=== PATIENT | female | born 1985 | race Two or more races ===

== ENCOUNTER → 2023-12-22 10:49 | Outpatient (BNVA) | payer SELFPAY | DX: R76.11 Nonspecific reaction to tuberculin skin test without active tuberculosis (principal) ==

== ENCOUNTER → 2023-12-29 09:17 | Outpatient (BNVA) | payer SELFPAY | DX: R76.11 Nonspecific reaction to tuberculin skin test without active tuberculosis (principal) ==

== ENCOUNTER 2024-10-11 10:37 | Emergency (ER) | payer OTHER, SELFPAY ==
--- NOTE | ~2024-10-11 | US_ITS ---
EXAMINATION: US PELVIC DUPLEX COMPLETE HISTORY: Torsion? ovarian rupture COMPARISON: There are no prior studies available for comparison. TECHNIQUE: Transabdominal and endovaginal real-time 2D farmer-scale ultrasound was performed. FINDINGS: Uterus: The uterus is surgically absent. Right ovary: The right ovary surgically absent. Left ovary: The left ovary measures 2.3 x 1.4 x 1.7 cm. The left ovary is normal in size and echotexture. Normal arterial and venous color and spectral Doppler flow is seen. Pelvic fluid: none. US/US pelvic ovarian doppler IMPRESSION: Status post hysterectomy and right nephrectomy. The left ovary is normal in appearance and demonstrates normal vascular flow. Electronically signed by: Yung Asher MD 10/11/2024 01:19 PM EDT
--- NOTE | ~2024-10-11 | CT_ITS ---
EXAMINATION: CT ABDOMEN PELVIS WITHOUT IV CONTRAST HISTORY: left lower abdominal pain, bloating COMPARISON: There are no prior studies available for comparison. TECHNIQUE: CT scan of the abdomen and pelvis was performed without contrast using standard departmental protocol. Coronal and sagittal reformatted images were generated and reviewed. Oral contrast material was not administered at the request of the referring physician. This CT exam was performed with one or more of the following dose reduction techniques: automated exposure control, adjustment of the mA and/or kV according to patient size, use of iterative reconstruction technique. DLP: 457 mGy-cm FINDINGS: LOWER CHEST: The visualized lung bases are clear. There is no pleural effusion. CARDIOVASCULATURE: The heart is normal in size. There is no pericardial effusion. LIVER: The liver is normal in size and contour. The liver has an unremarkable unenhanced appearance. GALLBLADDER / BILE DUCTS: The gallbladder is unremarkable. There is no intra or extrahepatic biliary ductal dilatation. SPLEEN: The spleen is normal in size and has an unremarkable unenhanced appearance. PANCREAS: The pancreas has an unremarkable unenhanced appearance. ADRENAL GLANDS: Unremarkable. KIDNEYS/RETROPERITONEUM: No renal calculi are identified. There is no hydronephrosis. LYMPH NODES: No retroperitoneal lymphadenopathy is identified in the abdomen or pelvis. VASCULATURE: The abdominal aorta is normal in caliber. MESENTERY/PERITONEUM: No free fluid. No masses. There is no free intraperitoneal gas. STOMACH: The stomach is collapsed, limiting evaluation. SMALL BOWEL: The small bowel is normal in caliber. COLON: There is a moderate amount of stool throughout the colon. APPENDIX: The appendix is surgically absent. URINARY BLADDER/PELVIC ORGANS: The urinary bladder is collapsed, limiting evaluation. The patient is status post hysterectomy. BONES / SOFT TISSUES: No suspicious bony or soft tissue abnormalities. CT/CT abdomen pelvis wo IV con IMPRESSION: Moderate amount of stool throughout the colon. Electronically signed by: Yung Asher MD 10/11/2024 01:58 PM EDT
--- NOTE | ~2024-10-11 | US_ITS ---
CLINICAL HISTORY: N17.9 - Acute kidney failure, unspecified US Renal with Doppler Comparison: None Findings: Right kidney normal size and echotexture, 8.4 cm length. No hydronephrosis. Normal color Doppler. Resistive index 0.76. Left kidney normal size and echotexture, 8.5 cm length. No hydronephrosis. Normal color Doppler. Resistive index 0.83. IMPRESSION: 1. Findings suggesting left lower pole renal artery stenosis. Appropriate follow-up recommended. This document has been electronically signed by: Karl Escalante MD on 10/12/2024 10:28:34
[2024-10-11 10:45] VITALS: BP 137/101; PULSE 90; RESP 20; TEMP 36.4; O2SAT 100; BMI 23.6
[2024-10-11 11:35] LABS: MANUAL DIFF FLAG NO
[2024-10-11 11:36] LABS: Basophils Percent Auto 0.5 % (0-2); Eosinophils Absolute Auto 0.1 X10*3/uL (0.0-0.4); Eosinophils Percent Auto 1.2 % (0-4); Hematocrit 36.7 % (37.0-47.0); Hemoglobin 12.5 g/dl (12.0-16.0); Imm Gran Abs Auto 0.02 X10*3/uL (0.00-0.03); Imm Gran Pct Auto 0.3 % (0.0-0.4); Lymphocytes Absolute Auto 2.3 X10*3/uL (1.2-4.9); Mean Corpuscular HGB Conc 34.1 g/dl (31.0-35.0); Mean Corpuscular Hemoglobin 31.6 pg (27.0-33.0); Mean Corpuscular Volume 92.9 fL (80.0-98.0); Monocytes Absolute Auto 0.5 X10*3/uL (0.1-1.2); Monocytes Percent Auto 7.7 % (2-11); Neutrophils Absolute Auto 3.1 x10*3/uL (2.0-8.3); Neutrophils Percent Auto 51.3 % (45-73); Platelet Count 358 X10*3/uL (160-400); Red Blood Count 3.95 X10*6/uL (4.20-5.50); Red Cell Distribution Width 13.6 % (11.0-16.0)
[2024-10-11 11:46] LABS: Appearance Urine Clear; Color Urine Dark Yellow; Glucose Urine UA Negative (Negative); Leukocyte Esterase Urine Trace (Negative); Nitrite Urine Negative (Negative); PH 7.5 (5.0-9.0); UMIC TRIGGER UACC YES; Urine Blood Negative (Negative); Urine Ketones Trace mg/dL (Negative); Urine Protein Negative (Neg-Trace)
[2024-10-11 11:50] LABS: Bacteria Urine Trace (None Seen); Hyaline Casts Urine 0-2 /LPF (0-2); RBC Urine 0-2 /HPF (0-2); WBC Urine 0-5 /HPF (0-5)
[2024-10-11 11:52] LABS: Alanine Aminotransferase 22 U/L (0-31); Albumin Level 4.4 g/dL (3.5-5.0); Alkaline Phosphatase 54 U/L (39-117); Anion Gap 9 (12-20); Aspartate Amino Transferase 19 U/L (5-31); Bilirubin Direct < 0.2 mg/dL (0.0-0.5); Bilirubin Total 0.1 mg/dL (0.0-1.0); Blood Urea Nitrogen 9 mg/dL (9-16); Calcium 9.2 mg/dL (8.4-10.2); Carbon Dioxide 26 mmol/L (22-29); Chloride 109 mmol/L (96-108); Creatinine Clr Calc Pharmacy 129.8; Estimated Glomerular Filt Rate > 60; Glucose Random 84 mg/dL (60-115); Lipase 18 U/L (8-78); Potassium 4.3 mmol/L (3.3-5.1); Sodium 140 mmol/L (135-145); Total Protein 7.2 g/dL (6.5-8.0)
[2024-10-11] MEDS: Ibuprofen 800 MG TABLET PO (12:03)
--- NOTE | 2024-10-11 12:08 | ED_ITS ---
HPI - General Adult General Chief complaint: Abdominal Pain Stated complaint: Lightheaded Dizzy L Lower Abd Pain Time Seen by Provider: 10/11/24 12:39 Related Data Previous Rx's ?Medication ?Instructions ?Recorded hydromorphone 2 mg tablet 2 mg PO Q4-6H PRN pain #7 tabs 10/11/24 (Dilaudid) hydromorphone 2 mg tablet 2 mg PO Q6H PRN pain #7 tabs 10/11/24 (Dilaudid) ondansetron 4 mg disintegrating 4 mg PO TID PRN nausea and 10/11/24 tablet vomiting 5 days #10 tabs ondansetron 4 mg disintegrating 4 mg PO TID PRN nausea and 10/11/24 tablet vomiting 5 days #10 tabs Allergies Allergy/AdvReac Type Severity Reaction Status Date / Time acetaminophen [From Vicodin] Allergy Hives Verified 10/11/24 10:48 hydrocodone [From Vicodin] Allergy Hives Verified 10/11/24 10:48 tramadol Allergy Seizure Verified 10/11/24 10:48 [facility] Social History Social History Alcohol intake: current Alcohol type: wine Smoked in Last 30 Days: No Use of substances other than those prescribed or required for medical reasons: Yes Substance Use Type: Marijuana Substance Use Frequency: Occasionally Advance Directives: No Advance Directives Information Provided: Yes Do you have a plan to hurt others: No Plan Patient : No Physical Exam ED Vital Signs: Vital Signs - 24 hr 10/11/24 10:45 10/11/24 13:29 Temperature 97.5 F 97.5 F Pulse Rate 90 90 Respiratory Rate 20 20 Blood Pressure 137/101 H 137/101 H Pulse Oximetry 100 100 Oxygen Delivery Method Room Air Room Air BMI result Body Mass Index 23.6 Course Course Course Narrative: RME: 39-year-old female history of endometriosis with partial hysterectomy presents to ED for left lower abdominal pelvic abdominal pain with nausea. Patient has normal bowel movements. Patient denies any urinary symptoms. Patient has not had an endometrial hours flare-up in 1 year. Labs were normal. Due to patient's still having left ovary and having left lower over abdominal tenderness was sent for ultrasound neck she does no torsion also sent for CAT scan. Medications Administered Discontinued Medications Generic Name Dose Route Start Last Admin Trade Name Nga PRN Reason Stop Dose Admin Hydromorphone HCl 2 mg 10/11/24 14:33 10/11/24 14:38 Hydromorphone Hcl 2 Mg Tablet PO 10/11/24 14:34 2 mg ONCE ONE Administration Ibuprofen 800 mg 10/11/24 11:59 10/11/24 12:03 Ibuprofen 800 Mg Tablet PO 10/11/24 12:00 800 mg ONCE ONE Administration Ondansetron HCl 4 mg 10/11/24 14:33 10/11/24 14:38 Ondansetron Odt 4 Mg Tab.Rapdis TRANSLINGU 10/11/24 14:34 4 mg ONCE ONE Administration Medical Decision Making Lab Data 10/11/24 11:13 10/11/24 11:13 Labs: Lab Results 10/11/24 10/11/24 Range/Units 11:12 11:13 WBC 6.0 (4.8-10.8) X10*3/uL RBC 3.95 L (4.20-5.50) X10*6/uL Hgb 12.5 (12.0-16.0) g/dl Hct 36.7 L (37.0-47.0) % MCV 92.9 (80.0-98.0) fL MCH 31.6 (27.0-33.0) pg MCHC 34.1 (31.0-35.0) g/dl RDW 13.6 (11.0-16.0) % Plt Count 358 (160-400) X10*3/uL MPV 9.0 L (9.4-12.3) fL Immature Gran % (Auto) 0.3 (0.0-0.4) % Neut % (Auto) 51.3 (45-73) % Lymph % (Auto) 39.0 (20-40) % [place] % (Auto) 7.7 (2-11) % Eos % (Auto) 1.2 (0-4) % Baso % (Auto) 0.5 (0-2) % Lymph # (Auto) 2.3 (1.2-4.9) X10*3/uL [place] # (Auto) 0.5 (0.1-1.2) X10*3/uL Eos # (Auto) 0.1 (0.0-0.4) X10*3/uL Baso # (Auto) 0.0 (0.0-0.2) X10*3/uL Abs Immat Gran (auto) 0.02 (0.00-0.03) X10*3/uL Absolute Neuts (auto) 3.1 (2.0-8.3) x10*3/uL Absolute Nucleated RBC 0.000 (0.0-0.012) X10*3/uL Nucleated RBC % (auto) 0.0 (0.0-0.2) /100WBC Sodium 140 (135-145) mmol/L Potassium 4.3 (3.3-5.1) mmol/L Chloride 109 H (96-108) mmol/L Carbon Dioxide 26 (22-29) mmol/L Anion Gap 9 L (12-20) BUN 9 (9-16) mg/dL Creatinine 0.56 (0.5-1.4) mg/dL Estim Creat Clear Calc 129.8 Estimated GFR > 60 Random Glucose 84 (60-115) mg/dL Calcium 9.2 (8.4-10.2) mg/dL Total Bilirubin 0.1 (0.0-1.0) mg/dL Direct Bilirubin < 0.2 (0.0-0.5) mg/dL AST 19 (5-31) U/L ALT 22 (0-31) U/L Alkaline Phosphatase 54 (39-117) U/L Total Protein 7.2 (6.5-8.0) g/dL Albumin 4.4 (3.5-5.0) g/dL Lipase 18 (8-78) U/L Beta HCG, Quant < 2 mIU/mL Urine Color Dark Yellow Urine Appearance Clear Urine pH 7.5 (5.0-9.0) Ur Specific [place] 1.020 (1.005-1.025) Urine Protein Negative (Neg-Trace) mg/dL Urine Glucose (UA) Negative (Negative) mg/dL Urine Ketones Trace (Negative) mg/dL Urine Blood Negative (Negative) Urine Nitrite Negative (Negative) Ur Leukocyte Esterase Trace H (Negative) Urine RBC 0-2 (0-2) /HPF Urine WBC 0-5 (0-5) /HPF Ur Squamous Epith Cells 3-5 (0-2) /HPF Urine Bacteria Trace (None Seen) Hyaline Casts 0-2 (0-2) /LPF Urine Test NEGATIVE (NEGATIVE) Discharge Plan Discharge Clinical Impression: Abdominal pain Patient Disposition: Home, Self-Care Instructions: Abdominal Pain (ED) Prescriptions: New hydromorphone [Dilaudid] 2 mg tablet 2 mg PO Q6H PRN (Reason: pain) Qty: 7 0RF Rx Instructions: Partial Fill upon patient request. ondansetron 4 mg tablet,disintegrating 4 mg PO TID PRN (Reason: nausea and vomiting) 5 Days Qty: 10 0RF ondansetron 4 mg tablet,disintegrating 4 mg PO TID PRN (Reason: nausea and vomiting) 5 Days Qty: 10 0RF hydromorphone [Dilaudid] 2 mg tablet 2 mg PO Q4-6H PRN (Reason: pain) Qty: 7 0RF Rx Instructions: Partial Fill upon patient request. Referrals: Physician,Derrick J [Primary Care Provider] - 10/15/24 Print Language: Divehi
[2024-10-11 12:20] LABS: UPreg QC Valid YES; Urine Pregnancy NEGATIVE (NEGATIVE)
[2024-10-11 12:32] LABS: HCG Quantitative < 2 mIU/mL
[2024-10-11 13:29] VITALS: BP 137/101; PULSE 90; RESP 20; TEMP 36.4; O2SAT 100
--- NOTE | 2024-10-11 13:32 | PC.NURSE ---
Patiwnt A&O x 4. Patient prsent to Ed c/o of lower left abdominal pain rated 10/10 radiates toward the back. Pain started yesterday but was manageable. Last Bm yesterday, Denies Nausea at this time, no vomiting, no diarrhea. Denies injury. Abdomen distended but soft, + bowel sounds. Patient has Hx of hysterectomy performed two years ago and endomitriosis, Patient states I have flair ups sometimes, but the pain is excruciating . Denies SOB. VSS and up to date. Plan of care on going
--- NOTE | 2024-10-11 13:55 | ED.ABDPAIN ---
HPI - Abdominal Pain General Chief Complaint: Abdominal Pain Stated Complaint: Lightheaded Dizzy L Lower Abd Pain Time Seen by Provider: 10/11/24 12:39 History of Present Illness HPI narrative: Patient is a 39-year-old female with a history of endometriosis status post hysterectomy complaining of pain to the left lower quadrant area radiating to the left flank area. There is no fever no chills. Pain wraps around. Not associated with position feels bloated. Patient from home no cough no congestion or upper respiratory symptoms no diaphoresis Related Data Previous Rx's ?Medication ?Instructions ?Recorded hydromorphone 2 mg tablet 2 mg PO Q4-6H PRN pain #7 tabs 10/11/24 (Dilaudid) hydromorphone 2 mg tablet 2 mg PO Q6H PRN pain #7 tabs 10/11/24 (Dilaudid) ondansetron 4 mg disintegrating 4 mg PO TID PRN nausea and 10/11/24 tablet vomiting 5 days #10 tabs ondansetron 4 mg disintegrating 4 mg PO TID PRN nausea and 10/11/24 tablet vomiting 5 days #10 tabs Allergies Allergy/AdvReac Type Severity Reaction Status Date / Time acetaminophen [From Vicodin] Allergy Hives Verified 10/11/24 10:48 hydrocodone [From Vicodin] Allergy Hives Verified 10/11/24 10:48 tramadol Allergy Seizure Verified 10/11/24 10:48 Review of Systems Review of Systems Positive abdominal pain Yes all other systems are reviewed and are negative PMFSH Past Medical History Attestation statement: The following information was validated with the patient. Social History Social History Alcohol intake: current Alcohol type: wine Smoked in Last 30 Days: No Use of substances other than those prescribed or required for medical reasons: Yes Substance Use Type: Marijuana Substance Use Frequency: Occasionally Advance Directives: No Advance Directives Information Provided: Yes Do you have a plan to hurt others: No Plan Patient : No Physical Exam ED Vital Signs: Vital Signs - 24 hr 10/11/24 10:45 10/11/24 13:29 Temperature 97.5 F 97.5 F Pulse Rate 90 90 Respiratory Rate 20 20 Blood Pressure 137/101 H 137/101 H Pulse Oximetry 100 100 Oxygen Delivery Method Room Air Room Air BMI result Body Mass Index 23.6 Appearance: Alert. Oriented X3. No acute distress. Eyes: Pupils equal, round and reactive to light. ENT: Pharynx normal. Neck: Normal inspection. Neck supple. No lymph nodes noted. No crepitus CVS: Normal heart rate and rhythm. Pulses normal. Normal S1 and S2 Respiratory: No respiratory distress. Breath sounds normal. No Wheezing. No rales Abdomen: Soft and nontender. No rigidity. No distention. good BS x4 Skin: Skin warm and dry. Normal skin color. Normal skin turgor. Extremities: No lower extremity edema. Neurovascular intact to all extremities. No Lacerations. No Rash Neuro: Oriented X 3. No motor deficit. No sensory deficit. Moving all extermities. No slurred speech Medical Decision Making Medical Decision Making [facility] Narrative: Positive left lower quadrant pain. With a history of endometriosis. Patient's white count is normal hemoglobin of 12.5 which is baseline. Patient's electrolytes showed normal LFTs. Patient's test is negative consistent with partial hysterectomy urine negative for infection no signs of UTI. CT scan of the abdomen pelvis currently pending. Doppler ultrasound of the lower abdomen showed no evidence of torsion. CT scan showed no obstruction abscess perforation does show moderate constipation patient in no distress. White count is normal electrolytes normal repeat abdominal exam is soft originally offered patient has some additional pain medication some fluids patient refused wants to go home and rest. Currently in stable condition. Differential Diagnosis Differential Diagnoses: The differential diagnosis associated with the presentation includes Lab Data [facility] Lab Attestation statement: I reviewed the patient's lab results. 10/11/24 11:13 10/11/24 11:13 Labs: Lab Results 10/11/24 10/11/24 Range/Units 11:12 11:13 WBC 6.0 (4.8-10.8) X10*3/uL RBC 3.95 L (4.20-5.50) X10*6/uL Hgb 12.5 (12.0-16.0) g/dl Hct 36.7 L (37.0-47.0) % MCV 92.9 (80.0-98.0) fL MCH 31.6 (27.0-33.0) pg MCHC 34.1 (31.0-35.0) g/dl RDW 13.6 (11.0-16.0) % Plt Count 358 (160-400) X10*3/uL MPV 9.0 L (9.4-12.3) fL Immature Gran % (Auto) 0.3 (0.0-0.4) % Neut % (Auto) 51.3 (45-73) % Lymph % (Auto) 39.0 (20-40) % [place] % (Auto) 7.7 (2-11) % Eos % (Auto) 1.2 (0-4) % Baso % (Auto) 0.5 (0-2) % Lymph # (Auto) 2.3 (1.2-4.9) X10*3/uL [place] # (Auto) 0.5 (0.1-1.2) X10*3/uL Eos # (Auto) 0.1 (0.0-0.4) X10*3/uL Baso # (Auto) 0.0 (0.0-0.2) X10*3/uL Abs Immat Gran (auto) 0.02 (0.00-0.03) X10*3/uL Absolute Neuts (auto) 3.1 (2.0-8.3) x10*3/uL Absolute Nucleated RBC 0.000 (0.0-0.012) X10*3/uL Nucleated RBC % (auto) 0.0 (0.0-0.2) /100WBC Sodium 140 (135-145) mmol/L Potassium 4.3 (3.3-5.1) mmol/L Chloride 109 H (96-108) mmol/L Carbon Dioxide 26 (22-29) mmol/L Anion Gap 9 L (12-20) BUN 9 (9-16) mg/dL Creatinine 0.56 (0.5-1.4) mg/dL Estim Creat Clear Calc 129.8 Estimated GFR > 60 Random Glucose 84 (60-115) mg/dL Calcium 9.2 (8.4-10.2) mg/dL Total Bilirubin 0.1 (0.0-1.0) mg/dL Direct Bilirubin < 0.2 (0.0-0.5) mg/dL AST 19 (5-31) U/L ALT 22 (0-31) U/L Alkaline Phosphatase 54 (39-117) U/L Total Protein 7.2 (6.5-8.0) g/dL Albumin 4.4 (3.5-5.0) g/dL Lipase 18 (8-78) U/L Beta HCG, Quant < 2 mIU/mL Urine Color Dark Yellow Urine Appearance Clear Urine pH 7.5 (5.0-9.0) Ur Specific [place] 1.020 (1.005-1.025) Urine Protein Negative (Neg-Trace) mg/dL Urine Glucose (UA) Negative (Negative) mg/dL Urine Ketones Trace (Negative) mg/dL Urine Blood Negative (Negative) Urine Nitrite Negative (Negative) Ur Leukocyte Esterase Trace H (Negative) Urine RBC 0-2 (0-2) /HPF Urine WBC 0-5 (0-5) /HPF Ur Squamous Epith Cells 3-5 (0-2) /HPF Urine Bacteria Trace (None Seen) Hyaline Casts 0-2 (0-2) /LPF Urine Test NEGATIVE (NEGATIVE) Radiology Impression Discussion of test interpretation with radiology: I have reviewed the radiologist's reading. (IMPRESSION: Moderate amount of stool throughout the colon.) Radiologist Impression: Left ovary: The left ovary measures 2.3 x 1.4 x 1.7 cm. The left ovary is normal in size and echotexture. Normal arterial and venous color and spectral Doppler flow is seen. Independent Historian Clinical information obtained from an independent historian. History obtained from or confirmed by: Spouse Chronic Conditions Endometriosis Medications Administered Discontinued Medications Generic Name Dose Route Start Last Admin Trade Name Freq PRN Reason Stop Dose Admin Ibuprofen 800 mg 10/11/24 11:59 10/11/24 12:03 Ibuprofen 800 Mg Tablet PO 10/11/24 12:00 800 mg ONCE ONE Administration Discharge Plan Discharge Clinical Impression: Abdominal pain Patient Disposition: Home, Self-Care Instructions: Abdominal Pain (ED) Prescriptions: New hydromorphone [Dilaudid] 2 mg tablet 2 mg PO Q6H PRN (Reason: pain) Qty: 7 0RF Rx Instructions: Partial Fill upon patient request. ondansetron 4 mg tablet,disintegrating 4 mg PO TID PRN (Reason: nausea and vomiting) 5 Days Qty: 10 0RF ondansetron 4 mg tablet,disintegrating 4 mg PO TID PRN (Reason: nausea and vomiting) 5 Days Qty: 10 0RF hydromorphone [Dilaudid] 2 mg tablet 2 mg PO Q4-6H PRN (Reason: pain) Qty: 7 0RF Rx Instructions: Partial Fill upon patient request. Referrals: Physician,Unknown J [Primary Care Provider] - 10/15/24 Print Language: [place]
[2024-10-11] MEDS: HYDROmorphone HCl 2 MG TABLET PO (14:38)
[2024-10-11] MEDS: Ondansetron ODT 4 MG TAB.RAPDIS TRANSLINGU (14:38)
[2024-10-11 14:39] VITALS: BP 128/97; PULSE 80; RESP 14; TEMP 36.6; O2SAT 96
[2024-10-11 14:57] VITALS: BP 128/97; PULSE 80; RESP 14; TEMP 36.6; O2SAT 96
== END 2024-10-11 15:03 | disposition home or self-care (01) ==
PROVIDERS: Physician Assistant; Emergency Provider Emergency Medicine Emergency Medical Services
DX: R10.32 Left lower quadrant pain (principal); R10.2 Pelvic and perineal pain; R11.0 Nausea; F12.90 Cannabis use, unspecified, uncomplicated; Z90.710 Acquired absence of both cervix and uterus
CPT/HCPCS: 36415; 74176; 76830; 76856; 80048; 80076; 81001; 81025; 83690; 84702; 85025; 93975; 99284

== ENCOUNTER → 2024-10-11 12:00 | Outpatient (BNV) | payer OTHER, SELFPAY | PROVIDERS: Emergency Provider Emergency Medicine Emergency Medical Services; Visit Provider Radiology Diagnostic Radiology | DX: N17.9 Acute kidney failure, unspecified (principal) | CPT/HCPCS: 76856 ==

== ENCOUNTER → 2025-02-04 10:17 | Outpatient (BNVA) | payer OTHER, SELFPAY | PROVIDERS: Visit Provider Emergency Medicine | DX: Z13.89 Encounter for screening for other disorder (principal) | CPT/HCPCS: 84450; 84460; 86706; 86803; 87389; 99203 ==

== ENCOUNTER 2025-03-04 15:42 | Emergency (ER) | payer OTHER, SELFPAY ==
[2025-03-04 15:54] VITALS: BP 147/89; PULSE 86; RESP 20; TEMP 36.1; O2SAT 100; BMI 23.3
== END 2025-03-04 21:05 | disposition left against medical advice (07) ==
PROVIDERS: Emergency Provider Emergency Medicine; PCP Internal Medicine
DX: R06.02 Shortness of breath (principal); R50.9 Fever, unspecified; M54.50 Low back pain, unspecified; R10.A2 Flank pain, left side; Z53.21 Procedure and treatment not carried out due to patient leaving prior to being seen by health care provider
CPT/HCPCS: 99281

== ENCOUNTER 2025-03-05 08:02 | Emergency (ER) | payer OTHER, SELFPAY ==
--- NOTE | 2025-03-05 | ECG_ITS ---
Test Reason : cp Blood Pressure : */* mmHG Vent. Rate : 96 BPM Atrial Rate : 96 BPM P-R Int : 160 ms QRS Dur : 72 ms QT Int : 360 ms P-R-T Axes : 46 58 30 degrees QTcB Int : 454 ms Normal sinus rhythm Cannot rule out Inferior infarct , age undetermined Abnormal ECG No previous ECGs available Referred By: Generic ED Physician Electronically Signed By: BETH CHAWLA MD
--- NOTE | ~2025-03-05 | XR_ITS ---
EXAMINATION: XR CHEST CLINICAL INFORMATION: SOB COMPARISON: None available. TECHNIQUE: 2 views of the chest were obtained. FINDINGS: Lungs: No focal lung consolidation. No evidence of pulmonary edema. Pleura: No pleural effusion or pneumothorax. Heart/Mediastinum: Cardiomediastinal silhouette is within normal limits. Bones/Soft Tissues: Chronic appearing anterior wedging deformity of multiple mid thoracic vertebrae. Bilateral nipple jewelry. XR/XR chest 2V IMPRESSION: 1. No acute abnormality. 2. Chronic appearing compression fracture deformity of midthoracic vertebrae. Electronically signed by: Anastasia Stack MD 03/05/2025 08:37 AM EDT
--- NOTE | ~2025-03-05 | CT_ITS ---
EXAMINATION: CT ABDOMEN AND PELVIS WITH CONTRAST CLINICAL INFORMATION: Left flank pain radiating to left lower abdomen. COMPARISON: October 11, 2024 TECHNIQUE: Multidetector volumetric images were obtained from the superior aspect of the liver through the pubic symphysis following administration 85 mL of Omnipaque 350 intravenous contrast. Sagittal and coronal reformatted images were obtained on the technologist's workstation. Oral contrast: No This CT examination was performed using dose optimization techniques as appropriate, variously including the following: *Automated exposure control *Adjustment of mA and/or kV according to patient size (this includes techniques or standardized protocols for targeted exams where dose is matched to indication/reason for exam; i.e. extremities or head) *Use of iterative reconstruction technique DLP: 488 mGy centimeter. FINDINGS: LUNG BASES: Atelectasis. LIVER, GALLBLADDER, AND BILIARY TREE: Liver measures 18 cm. 5 mm hypodensity in the periphery of the posterior right hepatic lobe. 9 mm hypodensities in the dome of the left hepatic lobe. Main portal veins and hepatic veins and intrahepatic portions of the IVC are patent. No focal enhancing mass. Fluid-filled nondistended. No pericholecystic fluid collection or gallbladder wall thickening. No intrahepatic or extrahepatic biliary ductal dilatation. PANCREAS: No focal mass. No main pancreatic ductal dilatation. No peripancreatic fluid collection. SPLEEN: 9 cm. No focal mass. ADRENAL GLANDS: No nodular lesions. KIDNEYS AND URETERS: No hydronephrosis. No gross nephrolithiasis. Normal enhancement of the renal parenchyma. No dilatation of the ureters. BLADDER: Fluid-filled nearly collapsed. GASTROINTESTINAL TRACT: Status post appendectomy. Collapsed appearance of the left hemicolon with the questionable intestinal wall thickening. Fatty intestinal wall, terminal ileum and distal ileal loops. No intestinal obstruction pattern. No pneumatosis intestinalis. No pneumoperitoneum. No ascites. No peripheral enhancing fluid collections.. ABDOMINAL WALL: Small tiny fat-containing umbilical hernia. LYMPH NODES: Nonspecific mildly prominent mesenteric and retroperitoneum. VASCULAR: No aneurysm or dissection, abdominal aorta. No gross calcified plaques. PELVIC VISCERA: Absent likely prior hysterectomy and possibly bilateral oophorectomy. OSSEOUS STRUCTURES: S shaped curvature of the thoracolumbar spine which could be positional. No acute fracture or listhesis. Spondylosis, L5-S1 and to a lesser extent L4-5. Sclerosis and the sacroiliac joints. Bony pelvis and coxofemoral joints are intact with normal alignment. CT/CT abdomen pelvis w IV con IMPRESSION: Posterior mild enterocolitis in the correct clinical settings. Hepatomegaly. Nonspecific cystic lesions, hepatic. Fleischner guidelines were followed. Electronically signed by: Rubin Moya MD 03/05/2025 10:35 AM EDT
[2025-03-05 08:08] VITALS: BP 134/80; PULSE 101; RESP 20; TEMP 37; O2SAT 98; BMI 23.8
[2025-03-05 08:23] LABS: MANUAL DIFF FLAG NO
[2025-03-05 08:25] LABS: Hematocrit 37.3 % (37.0-47.0); Hemoglobin 12.9 g/dl (12.0-16.0); Imm Gran Abs Auto 0.02 X10*3/uL (0.00-0.03); Imm Gran Pct Auto 0.3 % (0.0-0.4); Lymphocytes Absolute Auto 2.0 X10*3/uL (1.2-4.9); Mean Corpuscular HGB Conc 34.6 g/dl (31.0-35.0); Mean Corpuscular Hemoglobin 31.7 pg (27.0-33.0); Mean Corpuscular Volume 91.6 fL (80.0-98.0); NRBC Abs Auto 0.000 X10*3/uL (0.0-0.012); NRBC Pct Auto 0.0 /100WBC (0.0-0.2); Platelet Count 418 X10*3/uL (160-400); Red Blood Count 4.07 X10*6/uL (4.20-5.50); White Blood Count 7.3 X10*3/uL (4.8-10.8)
[2025-03-05 08:38] LABS: Alanine Aminotransferase 20 U/L (0-31); Albumin Level 4.7 g/dL (3.5-5.0); Alkaline Phosphatase 72 U/L (39-117); Anion Gap 11 (12-20); Aspartate Amino Transferase 23 U/L (5-31); Blood Urea Nitrogen 6 mg/dL (9-16); Calcium 9.0 mg/dL (8.4-10.2); Carbon Dioxide 28 mmol/L (22-29); Chloride 100 mmol/L (96-108); Creatinine Clr Calc Pharmacy 118.6; Estimated Glomerular Filt Rate > 60; Lipase 20 U/L (8-78); Magnesium 2.1 mg/dL (1.6-2.6); Potassium 3.3 mmol/L (3.3-5.1); Sodium 136 mmol/L (135-145); Total Protein 7.8 g/dL (6.5-8.0)
--- NOTE | 2025-03-05 09:09 | ED.GENADULT ---
HPI - General Adult General Chief complaint: General Medical Stated complaint: back pain, chest tightness, CP, fatigue Time Seen by Provider: 03/05/25 09:09 History of Present Illness ED Provider: MANISH Lerma HPI narrative: 39-year-old female with medical history of renal artery stenosis, HTN, endometriosis presents to ED due to 1 week of L sided flank pain radiating into the left lower abdomen, SOB, fevers, and headaches. Patient states she has been experiencing L flank pain for approximately 1 month but in the last week, the pain has become more severe and is now radiating into the left lower abdomen. Patient reports increased urinary frequency last night but no pain with urination. Patient reports SOB with subjective fevers over the last 2 weeks. Patient states SOB is worse when walking around or talking and feels as if she has to take a break while taking to catch her breath. Patient states she has also been experiencing headaches over the last several months due to high blood pressure. Patient states she was seen in the department in September of 2024 for abdominal pain and ultrasound revealed renal artery stenosis. Patient reports her PCP has started her on 2 antihypertensive medications due to these findings. Patient states she experiences headaches when her blood pressure is high. Patient states she has a headache today that is in the back of the neck and occipital region. Patient states she has discussed headaches with PCP and has referal for nephrology follow up 03/12. Denies chest pain, nausea, vomiting, visual changes, MD complaint: L flank pain, increased urinary frequency, SOB, headaches Related Data Previous Rx's ?Medication ?Instructions ?Recorded hydromorphone 2 mg tablet 2 mg PO Q4-6H PRN pain #7 tabs 10/11/24 (Dilaudid) hydromorphone 2 mg tablet 2 mg PO Q6H PRN pain #7 tabs 10/11/24 (Dilaudid) hydromorphone 2 mg tablet 2 mg PO Q6H PRN pain #7 tabs 10/11/24 (Dilaudid) ondansetron 4 mg disintegrating 4 mg PO TID PRN nausea and 10/11/24 tablet vomiting 5 days #10 tabs ondansetron 4 mg disintegrating 4 mg PO TID PRN nausea and 10/11/24 tablet vomiting 5 days #10 tabs ondansetron HCl 4 mg tablet 4 mg PO BEDTIME #7 tabs 03/05/25 Allergies Allergy/AdvReac Type Severity Reaction Status Date / Time acetaminophen (From Vicodin) Allergy Hives Verified 03/05/25 08:10 hydrocodone (From Vicodin) Allergy Hives Verified 03/05/25 08:10 tramadol Allergy Seizure Verified 03/05/25 08:10 Review of Systems Review of Systems: CONST: Negative for fever, body aches and chills. HENT: Negative for neck pain/stiffness, congestion, sore throat, swelling. POS headache EYES: Negative for discharge/pain or vision changes. RESP: Negative for cough/hemoptysis. POS SOB CV: Negative chest pain, difficulty breathing, palpitations. ABD: Negative pain, nausea, vomiting. POS L flank pain radiating into LLQ abdomen : Negative increase frequency, dysuria, blood in urine or stool. POS increased urinary frequency MUSC: Negative for muscle aches, edema. SKIN: Negative rash, lesions/sores. NEURO: Negative headache, dizziness, weakness. Yes all other systems are reviewed and are negative [facility] Social History Social History Alcohol intake: never Smoked in Last 30 Days: No Use of substances other than those prescribed or required for medical reasons: Yes Substance Use Type: Marijuana Advance Directives: No Advance Directives Information Provided: Yes Physical Exam ED Vital Signs: Vital Signs - 24 hr 03/05/25 08:08 03/05/25 10:04 03/05/25 11:26 Temperature 98.6 F 98.3 F 98.3 F Pulse Rate 101 H 95 95 Respiratory Rate 20 18 18 Blood Pressure 134/80 128/72 128/72 Pulse Oximetry 98 99 99 Oxygen Delivery Method Room Air Room Air Room Air BMI result Body Mass Index 23.8 GENERAL APPEARANCE: ?AxOx4, generally well-appearing, no acute distress. HEENT: ?NC, AT. MMM. EOMI, clear conjunctiva, oropharynx clear. NECK: ?Supple without lymphadenopathy.? No stiffness or restricted ROM. HEART:? Normal rate and regular rhythm, normal S1/S2, no m/r/g LUNGS:? CTAB, moving air well. No crackles or wheezes are heard. ABDOMEN: ?Soft, nondistended, no rigidity, no guarding, negative Joyner's sign, no rebound tenderness, mild TTP of the LLQ, no overlying skin changes BACK: CVAT to percussion of the L side, pain radiating into LLQ abdomen EXTREMITIES: ?Without cyanosis, clubbing or edema. NEUROLOGICAL: ?Grossly nonfocal. Alert and oriented, moving all 4 extremities. Observed to ambulate with normal gait. Skin: ?Warm and dry without any rash. Medications Administered Discontinued Medications Generic Name Dose Route Start Last Admin Trade Name Nga PRN Reason Stop Dose Admin Lactated Ringer's 1,000 mls @ 999 mls/hr 03/05/25 09:21 03/05/25 10:54 Lr IV 03/05/25 10:21 Infused .Q1H1M ONE Infusion Acetaminophen 1,000 mg in 100 mls @ 400 mls/hr 03/05/25 09:21 03/05/25 10:21 Ofirmev IV 03/05/25 09:35 Infused ONCE ONE Infusion Iohexol 100 ml 03/05/25 10:21 03/05/25 10:21 Iohexol 350 Mg/Ml 100 Ml Infus..Btl IV 03/05/25 10:22 85 ml ONCE ONE Administration Morphine Sulfate 4 mg 03/05/25 09:25 03/05/25 09:41 Morphine Sulfate 4 Mg/Ml Cartridge IVPUSH 03/05/25 09:26 4 mg ONCE ONE Administration Protocol Medical Decision Making Medical Decision Making MDM Narrative: 39-year-old female with medical history of renal artery stenosis, HTN, endometriosis presents to ED due to 1 week of L sided flank pain radiating into the left lower abdomen, SOB, fevers, and headaches. Patient states she has been experiencing L flank pain for approximately 1 month but in the last week, the pain has become more severe and is now radiating into the left lower abdomen with increased urinary frequency. Additionally, patient has had a few episodes of diarrhea with bright red blood on the tissue after bowel movement. Patient currently being worked up for renal artery stenosis with nephrology follow up 03/12. Patient on 2 antihypertensives, reports headaches due to elevated blood pressure. Headache today originating from occipital region and expands to front of forehead, throbbing in nature. 2 weeks of SOB worse with ambulation and when talking, feels as if she needs to stop and take a deep breath. VS on initial observation-BP 134/80, pulse rate of 101, respiratory rate of 20, afebrile with oral temp of 98.6?, O2 saturation 98% on room air. Physical exam reveals L sided CVAT to percussion, abdomen is soft, non distended, no rigidity, no guarding, negative murphys sign, no rebound tenderness, TTP of LLQ, no overlying skin changes. Plan: labs, UA, EKG, CXR, CT abdomen/pelvis - Patient medicated with IV fluids, 4mg IV morphine, 1g IV tylenol Labs without leukocytosis/leukopenia, H&H stable without evidence of anemia, no electrolyte abnormalities, D-Dimer WNL <150. UA reveals concentrated urine, 1+ protein, trace leukocyte esterase, 6-10 squamous epithelial cells, with trace urine bacteria. No indication for abx therapy. EKG normal sinus rhythm without significant ST-elevation/depression, T-wave abnormality, lengthened QT CXR reveals chronic appearing compression fracture deformity of midthoracic vertebrae, without acute cardiopulmonary disease. CT abdomen/pelvis reveals mild posterior mild enterocolitis in the correct clinical setting, tiny fat containing umbilical hernia, with non specific cystic lesions of the liver. Vital signs after medicating with IV fluids, morphine and Tylenol against-BP 128/72, pulse rate of 95, respiratory rate of 18, afebrile with oral temp of 98.3?, O2 saturation 99% on room air. Patients headache and abdominal pain has improved considerably. Patient is afebrile in the department, without leukocytosis, normotensive, no evidence of anemia on labs, BUN is WNL- GI bleed less likely. Patient with negative D-dimer less likely PE. Patient with L flank pain and LLQ abdominal pain, 2 episodes of diarrhea, symptoms most likely due to colitis. Patient's symptoms are mild, feels better after IV fluids, morphine, and tylenol, is able to go home for self care. I counseled patient to ensure plenty of hydration and bland diet until symptoms improve. Patient is in agreement with the plan. Differential Diagnosis Differential Diagnoses: The differential diagnosis associated with the presentation includes Pulmonary Embolism GI bleed Nephrolithiasis Colitis COVID Flu Viral illness UTI Admission/Observation Consideration of admission/observation: Escalation of care including admission/observation considered Lab Data MDM Lab Attestation statement: I reviewed the patient's lab results. 03/05/25 08:18 03/05/25 08:18 Labs: Lab Results 03/05/25 03/05/25 03/05/25 Range/Units 08:18 09:37 09:41 WBC 7.3 (4.8-10.8) X10*3/uL RBC 4.07 L (4.20-5.50) X10*6/uL Hgb 12.9 (12.0-16.0) g/dl Hct 37.3 (37.0-47.0) % MCV 91.6 (80.0-98.0) fL MCH 31.7 (27.0-33.0) pg MCHC 34.6 (31.0-35.0) g/dl RDW 12.9 (11.0-16.0) % Plt Count 418 H (160-400) X10*3/uL MPV 8.4 L (9.4-12.3) fL Immature Gran % (Auto) 0.3 (0.0-0.4) % Neut % (Auto) 65.1 (45-73) % Lymph % (Auto) 27.2 (20-40) % Rowan % (Auto) 6.6 (2-11) % Eos % (Auto) 0.5 (0-4) % Baso % (Auto) 0.3 (0-2) % Lymph # (Auto) 2.0 (1.2-4.9) X10*3/uL Rowan # (Auto) 0.5 (0.1-1.2) X10*3/uL Eos # (Auto) 0.0 (0.0-0.4) X10*3/uL Baso # (Auto) 0.0 (0.0-0.2) X10*3/uL Abs Immat Gran (auto) 0.02 (0.00-0.03) X10*3/uL Absolute Neuts (auto) 4.8 (2.0-8.3) x10*3/uL Absolute Nucleated RBC 0.000 (0.0-0.012) X10*3/uL Nucleated RBC % (auto) 0.0 (0.0-0.2) /100WBC D-Dimer High Sensitivty NG/ML Hold Blue Top Sodium 136 (135-145) mmol/L Potassium 3.3 D (3.3-5.1) mmol/L Chloride 100 (96-108) mmol/L Carbon Dioxide 28 (22-29) mmol/L Anion Gap 11 L (12-20) BUN 6 L (9-16) mg/dL Creatinine 0.59 (0.5-1.4) mg/dL Estim Creat Clear Calc 118.6 Estimated GFR > 60 Random Glucose 143 H (60-115) mg/dL Calcium 9.0 (8.4-10.2) mg/dL Magnesium 2.1 (1.6-2.6) mg/dL Total Bilirubin 0.4 (0.0-1.0) mg/dL AST 23 (5-31) U/L ALT 20 (0-31) U/L Alkaline Phosphatase 72 (39-117) U/L Total Protein 7.8 (6.5-8.0) g/dL Albumin 4.7 (3.5-5.0) g/dL Lipase 20 (8-78) U/L Urine Color Dark Yellow Urine Appearance Clear Urine pH 6.0 (5.0-9.0) Ur Specific [place] >= 1.030 H (1.005-1.025) Urine Protein 30 (1+) H (Neg-Trace) mg/dL Urine Glucose (UA) Negative (Negative) mg/dL Urine Ketones Trace (Negative) mg/dL Urine Blood Negative (Negative) Urine Nitrite Negative (Negative) Ur Leukocyte Esterase Trace H (Negative) Urine RBC 0-2 (0-2) /HPF Urine WBC 0-5 (0-5) /HPF Ur Squamous Epith Cells 6-10 (0-2) /HPF Urine Bacteria Trace (None Seen) Hyaline Casts 0-2 (0-2) /LPF Urine Test NEGATIVE (NEGATIVE) COVID-19 (KATIE) Negative (Negative) COVID-19 Clin Com See Note Influenza Type A (ANDRE) Negative (Negative) Influenza Type B (ANDRE) Negative (Negative) Influenza A & B Note See Note 03/05/25 Range/Units 09:43 WBC (4.8-10.8) X10*3/uL RBC (4.20-5.50) X10*6/uL Hgb (12.0-16.0) g/dl Hct (37.0-47.0) % MCV (80.0-98.0) fL MCH (27.0-33.0) pg MCHC (31.0-35.0) g/dl RDW (11.0-16.0) % Plt Count (160-400) X10*3/uL MPV (9.4-12.3) fL Immature Gran % (Auto) (0.0-0.4) % Neut % (Auto) (45-73) % Lymph % (Auto) (20-40) % Rowan % (Auto) (2-11) % Eos % (Auto) (0-4) % Baso % (Auto) (0-2) % Lymph # (Auto) (1.2-4.9) X10*3/uL Rowan # (Auto) (0.1-1.2) X10*3/uL Eos # (Auto) (0.0-0.4) X10*3/uL Baso # (Auto) (0.0-0.2) X10*3/uL Abs Immat Gran (auto) (0.00-0.03) X10*3/uL Absolute Neuts (auto) (2.0-8.3) x10*3/uL Absolute Nucleated RBC (0.0-0.012) X10*3/uL Nucleated RBC % (auto) (0.0-0.2) /100WBC D-Dimer High Sensitivty < 150 NG/ML Hold Blue Top Cancelled Sodium (135-145) mmol/L Potassium (3.3-5.1) mmol/L Chloride (96-108) mmol/L Carbon Dioxide (22-29) mmol/L Anion Gap (12-20) BUN (9-16) mg/dL Creatinine (0.5-1.4) mg/dL Estim Creat Clear Calc Estimated GFR Random Glucose (60-115) mg/dL Calcium (8.4-10.2) mg/dL Magnesium (1.6-2.6) mg/dL Total Bilirubin (0.0-1.0) mg/dL AST (5-31) U/L ALT (0-31) U/L Alkaline Phosphatase (39-117) U/L Total Protein (6.5-8.0) g/dL Albumin (3.5-5.0) g/dL Lipase (8-78) U/L Urine Color Urine Appearance Urine pH (5.0-9.0) Ur Specific [place] (1.005-1.025) Urine Protein (Neg-Trace) mg/dL Urine Glucose (UA) (Negative) mg/dL Urine Ketones (Negative) mg/dL Urine Blood (Negative) Urine Nitrite (Negative) Ur Leukocyte Esterase (Negative) Urine RBC (0-2) /HPF Urine WBC (0-5) /HPF Ur Squamous Epith Cells (0-2) /HPF Urine Bacteria (None Seen) Hyaline Casts (0-2) /LPF Urine Test (NEGATIVE) COVID-19 (KATIE) (Negative) COVID-19 Clin Com Influenza Type A (ANDRE) (Negative) Influenza Type B (ANDRE) (Negative) Influenza A & B Note Independent Interpretation I performed an independent interpretation of an: EKG, Plain X-Ray and CT Scan Interpretation: I personally interpreted the EKG which reveals normal sinus rhythm without significant ST-elevation/depression, T-wave abnormality, lengthened QT Vent. Rate : 96 BPM Atrial Rate : 96 BPM P-R Int : 160 ms QRS Dur : 72 ms QT Int : 360 ms P-R-T Axes : 46 58 30 degrees QTcB Int : 454 ms Normal sinus rhythm Cannot rule out Inferior infarct , age undetermined Abnormal ECG No previous ECGs available I personally interpreted the CXR which is negative for acute cardiopulmonary processes, I agree with the radiologist's interpretation I personally interpreted the CT abdomen and pelvis which reveals possible enterocolitis, I agree with the radiologist's interpretation Radiology Impression Discussion of test interpretation with radiology: I have reviewed the radiologist's reading. Radiologist Impression: CXR FINDINGS: Lungs: No focal lung consolidation. No evidence of pulmonary edema. Pleura: No pleural effusion or pneumothorax. Heart/Mediastinum: Cardiomediastinal silhouette is within normal limits. Bones/Soft Tissues: Chronic appearing anterior wedging deformity of multiple mid thoracic vertebrae. Bilateral nipple jewelry. XR/XR chest 2V IMPRESSION: 1. No acute abnormality. 2. Chronic appearing compression fracture deformity of midthoracic vertebrae. Electronically signed by: Anastasia Stack MD 03/05/2025 08:37 AM EDT Dictated By: Anastasia Stack MD Signed By: <Electronically signed by Anastasia Stack MD in [place]> 03/05/[address] abdomen and pelvis FINDINGS: Lungs: No focal lung consolidation. No evidence of pulmonary edema. Pleura: No pleural effusion or pneumothorax. Heart/Mediastinum: Cardiomediastinal silhouette is within normal limits. Bones/Soft Tissues: Chronic appearing anterior wedging deformity of multiple mid thoracic vertebrae. Bilateral nipple jewelry. XR/XR chest 2V IMPRESSION: 1. No acute abnormality. 2. Chronic appearing compression fracture deformity of midthoracic vertebrae. Electronically signed by: Anastasia Stack MD 03/05/2025 08:37 AM EDT RP Dictated By: Anastasia Stack MD Signed By: <Electronically signed by Anastasia Stack MD in [place]> 03/05/25 0837 External Record Review External record reviewed: Inpatient record, Office record and Outpatient record Prescription Management I considered prescription management with: Antibiotic (Patient afebrile, no leukocytosis, symptoms mild, no indication for antibiotic therapy at this time) Chronic Conditions Patient?s care impacted by: Hypertension and Other (Renal artery stenosis, endometriosis) Discharge Plan Discharge Clinical Impression: Colitis Patient Disposition: Home, Self-Care Additional Instructions: You were evaluated in the ED today due to left-sided flank, abdominal pain, headaches, and shortness of breath. Your labs were reassuring as there was no elevation of your white blood cell count, no indication of anemia, and no electrolyte abnormality. Your D-dimer which is a lab value to test for presence of possible clots within the body was negative today. Your EKG was normal. Your chest x-ray was normal. Your CT abdomen/pelvis shows some intestinal thickening consistent with your symptoms of enterocolitis. You were afebrile in the department today. You were mediated with IV fluids, 4g IV morphine, and 1G IV tylenol with improvement of your symptoms. You are being prescribed Zofran to manage nausea at home. To manage pain at home you can take 500 mg of Tylenol every 6 hours. You are getting plenty hydration with Gatorade, Pedialyte, Powerade. Eat a bland diet until your symptoms improve. Typically, colitis resolves on its own with plenty of hydration and rest. Please follow up with your primary care doctor to ensure resolution of your symptoms. Please return to the emergency department if you experience fevers over 100.4? that do not respond to Tylenol/Motrin, worsening abdominal pain, worsening nausea and vomiting, increased blood in the stool, chest pain, worsening shortness of breath or any new/worsening/concerning symptoms Prescriptions: New ondansetron HCl 4 mg tablet 4 mg PO BEDTIME Qty: 7 0RF No Action hydromorphone [Dilaudid] 2 mg tablet 2 mg PO Q6H PRN (Reason: pain) Qty: 7 0RF Rx Instructions: Partial Fill upon patient request. ondansetron 4 mg tablet,disintegrating 4 mg PO TID PRN (Reason: nausea and vomiting) 5 Days Qty: 10 0RF ondansetron 4 mg tablet,disintegrating 4 mg PO TID PRN (Reason: nausea and vomiting) 5 Days Qty: 10 0RF hydromorphone [Dilaudid] 2 mg tablet 2 mg PO Q4-6H PRN (Reason: pain) Qty: 7 0RF Rx Instructions: Partial Fill upon patient request. hydromorphone [Dilaudid] 2 mg tablet 2 mg PO Q6H PRN (Reason: pain) Qty: 7 0RF Rx Instructions: Partial Fill upon patient request. Stand Alone Forms: Work/School Release Interventions: ED Discharge Assessment Last Done: 03/05/25 11:26 Discharge Date/Time: 03/05/25 11:26 Print Language: [place] Citizen
[2025-03-05] MEDS: Lactated Ringers 1,000 ML 999 ML IV (09:43)
[2025-03-05 09:54] LABS: UPreg QC Valid YES
[2025-03-05 09:55] LABS: Appearance Urine Clear; Glucose Urine UA Negative (Negative); PH 6.0 (5.0-9.0); Specific Gravity - Urine >= 1.030 (1.005-1.025); UMIC TRIGGER UACC YES
[2025-03-05 10:04] VITALS: BP 128/72; PULSE 95; RESP 18; TEMP 36.8; O2SAT 99
[2025-03-05 10:19] LABS: COVID-19 Test Negative (Negative); IDNOW Serial# 55D5AD1C
[2025-03-05 10:20] LABS: IDNOW Serial# 58CA691E; Influenza B2 Negative (Negative)
[2025-03-05] MEDS: iohexoL 350 MG/ML 100 ML INFUS..BTL IV (10:21)
[2025-03-05 10:23] LABS: D Dimer High Sensitivity < 150 NG/ML
[2025-03-05 11:26] VITALS: BP 128/72; PULSE 95; RESP 18; TEMP 36.8; O2SAT 99
== END 2025-03-05 11:26 | disposition home or self-care (01) ==
PROVIDERS: Emergency Provider Emergency Medicine; PCP Internal Medicine
DX: K52.9 Noninfective gastroenteritis and colitis, unspecified (principal); M54.50 Low back pain, unspecified; R07.89 Other chest pain; R53.83 Other fatigue; R10.A2 Flank pain, left side; I10 Essential (primary) hypertension; R06.02 Shortness of breath; R50.9 Fever, unspecified; Z11.52 Encounter for screening for COVID-19; Z79.899 Other long term (current) drug therapy
CPT/HCPCS: 36415; 71046; 74177; 80053; 81001; 81025; 83690; 83735; 85025; 85379; 87502; 87635; 93005; 96365; 96375; 99285; J0131; J2270; J7120; Q9967

== ENCOUNTER → 2025-03-05 08:05 | Outpatient (BNV) | payer OTHER, SELFPAY | PROVIDERS: Emergency Provider Emergency Medicine; PCP Internal Medicine; Visit Provider Internal Medicine Cardiovascular Disease | DX: R94.31 Abnormal electrocardiogram [ECG] [EKG] (principal); R07.9 Chest pain, unspecified | CPT/HCPCS: 93010 ==

== ENCOUNTER → 2025-03-05 08:20 | Outpatient (BNV) | payer OTHER, SELFPAY | PROVIDERS: PCP Internal Medicine; Visit Provider Radiology Body Imaging | DX: K52.9 Noninfective gastroenteritis and colitis, unspecified (principal); R16.0 Hepatomegaly, not elsewhere classified; R06.02 Shortness of breath | CPT/HCPCS: 71046; 74177 ==

== ENCOUNTER 2025-03-12 14:17 | Outpatient (AMB) | payer OTHER, MEDICARE, SELFPAY ==
--- OUTSIDE RECORDS SUMMARY | 2025-03-07 23:59 | XMS_ITS | Continuity of Care Document ---
Author Organization [facility] Address [address] [place] [address]- Care Team Providers Care Oil Well Services Superintendent Name Role Post Anesthesia Care Unit Nurse Darci SALOMON Primary Care Physician [phone] Encounter [facility] Date(s): 02/05/25 - 03/07/[address] [address] Encounter Type: Triage Allergies, Adverse Reactions, Alerts Substance Criticality Severity Reaction Reaction Severity Status Vicodin cough sob rash Active traMADol 1 seizure Active 1Was also on SSRI Immunizations Given and Recorded Vaccine Date Status Refusal Reason Measles/Mumps/Rubella Virus Vaccine 06/18/24 Recor ded Measles/Mumps/Rubella Virus Vaccine 05/28/07 Recor ded hepatitis B adult vaccine 12/21/23 Given hepatitis B adult vaccine 05/28/07 Recorded hepatitis B adult vaccine 04/24/07 Recorded Hepatitis A Adult Vaccine 12/21/23 Given SARS-CoV-2 (COVID-19) mRNA-1273 vaccine 04/27/21 R ecorded SARS-CoV-2 (COVID-19) mRNA-1273 vaccine 03/30/21 R ecorded tetanus/diphtheria/pertussis, acel(Tdap) 09/11/19 Given tetanus/diphtheria/pertussis, acel(Tdap) 06/08/15 Given Human Papillomavirus Vaccine 1 04/27/07 Given Human Papillomavirus Vaccine 02/28/07 Given tetanus-diphtheria toxoids (Td) 05/15/05 Recorded 1Admin Note: vis patient states she has one. Medications acetaminophen 500 mg oral tablet 1 tablet, By Mouth, Every 4 hours, PRN NEEDED FOR PAIN, # 60 tablet, 0 Refills, Maintenance, 11/01/24 10:35:00 AM EDT, [facility] #[id number], 170, cm, 08/14/24 9:14:00 EDT, Height, 62.6, kg, 01/31/24 0:12:00 EDT, Dry Weight Start Date: 11/01/24 Status: Ordered Medication Dispense Status: Completed Quantity: 60.0 Unit: tablet Total Allowed Fills: 1 Fills Dispensed: 0 escitalopram 20 mg oral tablet 1 tablet, By Mouth, Daily, # 90 tablet, 1 Refills, Maintenance, 02/18/25 10:42:00 AM EDT, [facility] #[id number], 170, cm, 08/14/24 9:14:00 EDT, Height, 62.6, kg, 01/31/24 0:12:00 EDT, Dry Weight Start Date: 02/18/25 Status: Ordered Medication Dispense Status: Completed Quantity: 90.0 Unit: tablet Total Allowed Fills: 2 Fills Dispensed: 0 hydrochlorothiazide 25 mg oral tablet See Instructions, TAKE 1 TABLET BY MOUTH DAILY, # 90 tablet, Refills 1, Tot. Refills 1, Maintenance, 02/18/25 10:42:00 AM EDT, Instructions Replace Required Details, Route to Pharmacy Electronically, [facility] #[id number], 170, cm, 08/14/24 9:14:00 EDT, Height, 62.6, kg, 01/31/24 0:12:00 EDT, Dry Weight Start Date: 02/18/25 Status: Ordered Medication Dispense Status: Completed Quantity: 90.0 Unit: tablet Total Allowed Fills: 2 Fills Dispensed: 0 hydrOXYzine hydrochloride 50 mg oral tablet 1 tablet, By Mouth, 4 times a day, PRN NEEDED FOR ANXIETY, # 40 tablet, 0 Refills, Maintenance, 02/14/25 12:09:00 PM EDT, [facility] #[id number], 170, cm, 08/14/24 9:14:00 EDT, Height, 62.6, kg, 01/31/24 0:12:00 EDT, Dry Weight Start Date: 02/14/25 Status: Ordered Medication Dispense Status: Completed Quantity: 40.0 Unit: tablet Total Allowed Fills: 1 Fills Dispensed: 0 loperamide 2 mg oral tablet 1 tablet = 2 mg, By Mouth, Every 4 hours, PRN as needed for loose stool, not to exceed 16 mg/day for loose stool, # 24 tablet, 1 Refills, Maintenance, 08/14/24 9:50:00 AM EDT, Tablet, [facility] #[id number], Partial fill upon patient request if the prescription is for a schedule II opioid drug.,170, cm, 08/14/24 9:14:00 EDT, Height, 62.6, kg, 01/31/24 0:12:00 EDT, Dry Weight Start Date: 08/14/24 Status: Ordered Medication Dispense Status: Completed Quantity: 24.0 Unit: tablet Total Allowed Fills: 2 Fills Dispensed: 0 losartan 25 mg oral tablet 25 mg, 1, tablet, By Mouth, Daily, # 90 tablet, Refills 1, Tot. Refills 1, Maintenance, 01/20/26 9:57:00 AM EDT, Route to Pharmacy Electronically, [facility] #[id number], Partial fill upon patientrequest if the prescription is for a schedule II opioid drug., 170, cm, 08/14/24 9:14:00 EDT, Height, 62.6, kg, 01/31/24 0:12:00 EDT, Dry Weight Start Date: 01/20/26 Stop Date: 07/19/26 Status: Ordered Medication Dispense Status: Completed Quantity: 90.0 Unit: tablet Total Allowed Fills: 2 Fills Dispensed: 0 losartan 25 mg oral tablet 25 mg, 1, tablet, By Mouth, Daily, for 90 days, # 90 tablet, Refills 6, Tot. Refills 6, Hard Stop 01/20/26 9:57:00 AM EDT, 04/30/24 9:57:00 AM EST, Route to Pharmacy Electronically, [facility] #[id number], Partial fill upon patient request if the prescription is for a schedule II opioid drug., 170, cm, 04/30/24 9:33:00 EST, Height, 62.6, kg, 01/31/24 0:12:00 EDT, Dry Weight Start Date: 04/30/24 Stop Date: 01/20/26 Status: Ordered Medication Dispense Status: Completed Quantity: 90.0 Unit: tablet Total Allowed Fills: 7 Fills Dispensed: 0 LOSARTAN 25MG TABLETS LOSARTAN 25MG TABLETS, 1, tablet, By Mouth, Daily, # 90 tablet, 0 Refills, Maintenance, 04/26/24 9:41:00 AM EST, 170, cm, 04/25/24 10:16:00 EST, Height, 62.6, kg, 01/31/24 0:12:00 EDT, Dry Weight Start Date: 04/26/24 Status: Ordered Medication Dispense Status: Completed Quantity: 90.0 Unit: tablet Total Allowed Fills: 1 Fills Dispensed: 0 pantoprazole 40 mg oral granule 1 pack/packet = 40 mg, By Mouth, Daily, # 90 each, 0 Refills, Maintenance, 02/18/25 10:40:00 AM EDT,[facility]an[facility], 170, cm, 08/14/24 9:14:00 EDT, Height, 62.6, kg, 01/31/24 0:12:00 EDT, Dry Weight Start Date: 02/18/25 Status: Ordered Medication Dispense Status: Completed Quantity: 90.0 Unit: each Total Allowed Fills: 1 Fills Dispensed: 0 psyllium 2.4 g/3.7 g oral powder for reconstitution = 2.4 Gm, By Mouth, 2 times a day, mix 1 rounded teaspoon or 1 packet in at least 8 oz. of liquid to bulk up stool / make stool formed, # 500 Gm, 1 Refills, Maintenance, 08/14/24 9:51:00 AM EDT, REC Powder, [facility] #[id number], Partial fill upon patient request if the prescription is for a schedule II opioid drug., 170, cm, 08/14/24 9:14:00 EDT, Height, 62.6, kg, 01/31/24 0:12:00 EDT, Dry Weight Start Date: 08/14/24 Status: Ordered Medication Dispense Status: Completed Quantity: 500.0 Unit: g Total Allowed Fills: 2 Fills Dispensed: 0 Indications: Diarrhea, unspecified; SUMAtriptan 25 mg oral tablet 1 tablet, By Mouth, Daily, PRN NEEDED FOR MIGRAINE HEADACHE, MAY REPEAT DOSE AFTER 2 HOURS UP TOA. MAXIMUM OF 2, # 9 tablet, 2 Refills, Maintenance, 10/28/24 3:52:00 PM EDT, [facility] #[id number], 170, cm, 08/14/24 9:14:00 EDT, Height, 62.6, kg, 01/31/24 0:12:00 EDT, Dry Weight Start Date: 10/28/24 Stop Date: 11/04/24 Status: Ordered Medication Dispense Status: Completed Quantity: 9.0 Unit: tablet Total Allowed Fills: 1 Fills Dispensed: 0 Problem List Condition Confirmation Course Effective Dates Status H ealth Status Informant Breast pain Confirmed Active Last pap smear 02/18/10 was negative, she had a total laparoscopic hysterectomy 08/11/14 with benign cervical pathology, so she does not need any further pap smears Confirmed Active Marijuana use Confirmed Active Chronic abdominal and pelvic pain in female Confirmed Active Dysuria Confirmed Active Endometriosis - confirmed on hysterectomy specimen 08/11/14. She also had adenomyosis Confirmed Active Family history of breast cancer Confirmed Active Limitation due to disability 1 Confirmed Active Drug or alcohol risk assessment or counseling 2 Confirmed Active . 12/06/01 . 04/24/05 section. 04/30/08 successful Confirmed Active History of migraine headaches Confirmed Active Migraines Confirmed Active History of nipple discharge Confirmed Active Hypertension Confirmed Active Frequency of urination Confirmed Active Appetite loss Confirmed Active Dense breast tissue on mammogram Confirmed Active Chronic nausea and vomiting Confirmed Active Depression Confirmed Active Renal artery stenosis Confirmed Active RLQ abdominal pain Confirmed Active History of seizures. Was on tramadol at the time and that is what she attributed it to. Seen by Karl Kee NP at [facility] on 03/10/15 Confirmed Active Underweight Confirmed Active Unspecified vitamin D deficiency Confirmed Active 1initial Oswestry Disability Index: 58% ( severe disability ) on 12/28/16; initial [place] Back Pain Scale: 58 on 01/03/17; initial [place]: 8 on 12/28/16 2SOAPP-R: 27 on 12/28/16 Patient Care team information Care Team Personnel Name: Banker SALOMON, Darci Ruggiero Position: [facility] Physician - Primary Care Member Role: PCP Address: [address] [place] [address] Telecom: Name: Sergio SALOMON, Surinder Aguilar Position: [facility] ITEM PROCESSOR MD Member Role: [employer] ITEM PROCESSOR Physician Care Team Related Persons Name: YONI DOMINGUEZ Name: GILDARDO SINGLETON Name: JAMES SINGLETON Name: BABAK ESPARZA Name: APOLONIA BAUTISTA Insurance Providers Guarantor name: [facility] Plan Information #: 1 Payer: [facility] Payer Identifier: NA Member Number: [id number] Group Number: [id number] Subscriber Identifier: NA Relationship to Subscriber: self Coverage Type: Medicaid (Managed Care) Coverage Verification Date: NA Telecom: NA Address:
--- OUTSIDE RECORDS SUMMARY | 2025-03-10 23:59 | XMS_ITS | Continuity of Care Document ---
Author Organization [facility] Address [address] [place] [address]- Care Team Providers Care Turntable Engineer Name Role Meeting/Event Planner Darci SALOMON Primary Care Physician Encounter [facility] Date(s): 02/06/25 - 03/10/[address] [address] Attending Physician: Jim Singh MD Admitting Physician: Jim Singh MD Encounter Type: Pre-OutPatient One Time Allergies, Adverse Reactions, Alerts Substance Criticality Severity [...] 0 Refills, Maintenance, 11/01/24 10:35:00 AM EDT, [facility] #[id number], 170, cm, 08/14/24 9:14:00 EDT, Height, 62.6, kg, 01/31/24 0:12:00 EDT, Dry Weight Start Date: 11/01/24 Status: Ordered Medication Dispense Status: Completed Quantity: 60.0 Unit: tablet Total Allowed Fills: 1 Fills Dispensed: 0 escitalopram 20 mg oral tablet 1 tablet, By Mouth, Daily, # 90 tablet, 1 Refills, Maintenance, 02/18/25 10:42:00 AM EDT, [facility] #[id number], 170, cm, 08/14/24 9:14:00 EDT, Height, 62.6, [...] Replace Required Details, Route to Pharmacy Electronically, [facility] #[id number], 170, cm, 08/14/24 9:14:00 EDT, Height, 62.6, kg, 01/31/24 0:12:00 EDT, Dry Weight Start Date: 02/18/25 Status: Ordered Medication Dispense Status: Completed Quantity: 90.0 Unit: tablet Total Allowed Fills: 2 Fills Dispensed: 0 hydrOXYzine hydrochloride 50 mg oral tablet 1 tablet, By Mouth, 4 times a day, PRN NEEDED FOR ANXIETY, # 40 tablet, 0 Refills, Maintenance, 02/14/25 12:09:00 PM EDT, [facility] #[id number], 170, cm, 08/14/24 9:14:00 EDT, Height, 62.6, [...] Refills, Maintenance, 08/14/24 9:50:00 AM EDT, Tablet, [facility] #[id number], Partial fill upon patient request if the [...] 9:57:00 AM EDT, Route to Pharmacy Electronically, [facility] #[id number], Partial fill upon patientrequest if the prescription [...] 9:57:00 AM EST, Route to Pharmacy Electronically, [facility] #[id number], Partial fill upon patient request if the [...] Maintenance, 08/14/24 9:51:00 AM EDT, REC Powder, [facility] #[id number], Partial fill upon patient request if the [...] 2 Refills, Maintenance, 10/28/24 3:52:00 PM EDT, [facility] #[id number], 170, cm, 08/14/24 9:14:00 EDT, Height, 62.6, [...] to. Seen by Karl Kee NP at [facility] on 03/10/15 Confirmed Active Underweight Confirmed Active Unspecified vitamin D deficiency Confirmed Active 1initial Oswestry Disability Index: 58% ( severe disability ) on 12/28/16; initial [place] Back Pain Scale: 58 on 01/03/17; initial [place]: 8 on 12/28/16 2SOAPP-R: 27 on 12/28/16 Patient Care team information Care Team Personnel Name: Darci Cleveland MD Position: [facility] Physician - Primary Care Member Role: PCP Address: [place], [place] [address] Telecom: Name: Sergio SALOMON, Surinder Aguilar Position: [facility] SHINGLES ROOFER HELPER MD Member Role: Lifetime SHINGLES ROOFER HELPER Physician Care Team Related Persons Name: YONI DOMINGUEZ Name: GILDARDO SINGLETON Name: JAMES SINGLETON Name: BABAK ESPARZA Name: APOLONIA BAUTISTA Insurance Providers Guarantor name: RACHANAGABI GOMEZ Health Plan Information #: 1 Payer: [employer] Payer Identifier: NA Member Number: [id number] Group Number: [id number] Subscriber Identifier: [id number] Relationship to Subscriber: self Coverage Type: Medicaid (Managed Care) Coverage Verification Date: NA Telecom: NA Address: NA
[2025-03-12 14:51] VITALS: BP 142/110; PULSE 80; O2SAT 96; BMI 25.2
--- NOTE | 2025-03-12 14:51 | HO.NEPHOV ---
Vital Signs 03/12/25 14:51 Height 5 ft 6 in Weight 156 lb BMI 25.2 BP 142/110 H Blood Pressure Location Lt brachial Position Sitting Pulse 80 Pulse Source Pulse Oximeter Pulse Oximetry (%) 96 Oxygen Delivery Method Room Air Intake Visit Reasons: Unilateral Renal artery stenosis conf. Machine I Coremaker Required: No Accompanied by: Self / Same As Patient Allergies amlodipine Allergy (Unknown, Verified 03/12/25 14:54) Swelling acetaminophen (From Vicodin) Allergy (Verified 03/12/25 14:54) Hives hydrocodone (From Vicodin) Allergy (Verified 03/12/25 14:54) Hives tramadol Allergy (Verified 03/12/25 14:54) Seizure Medication List - Last Reconciled 03/12/25 by Donovan Judd MD acetaminophen 500 mg PO Q4H PRN escitalopram oxalate 20 mg PO DAILY hydrochlorothiazide 25 mg PO DAILY hydroxyzine HCl 50 mg PO QID PRN losartan 25 mg PO DAILY ondansetron HCl 4 mg PO BEDTIME pantoprazole 40 mg PO DAILY sumatriptan succinate 25 mg PO DAILY PRN HPI Comments Details: The patient is a 39-year-old female presenting with uncontrolled hypertension and associated symptoms such as headaches and shortness of breath. The hypertension began approximately a year ago, with initial blood pressure readings reaching 180/100 mmHg, leading to emergency room visits due to severe headaches. Initial treatment with amlodipine was discontinued due to edema, and the patient was switched to losartan and hydrochlorothiazide, which have not fully controlled the blood pressure. The patient reports persistent symptoms of fatigue, shortness of breath, and cognitive fog, despite medication adherence. There is a family history of hypertension and cardiovascular issues, with two aunts having from strokes in their 40s. The patient has a history of endometriosis, treated with multiple surgeries, including removal of the cervix, uterus, and right ovary, leaving only the left ovary intact. The last surgery was performed two years ago, and the patient reports no blood pressure issues at that time. Recently, the patient was diagnosed with a hiatal hernia and is under the care of a chemical equipment repairer. The patient has experienced significant weight gain of 30 pounds over the past year, despite no changes in dietary habits, and reports episodes of palpitations and night sweats. There is also a recent onset of urinary incontinence and increased frequency, which the patient finds concerning. She underwent renal ultrasonogram which was unremarkable however a transvaginal ultrasound report reads that she has left renal artery stenosis. The renal ultrasonogram also mentions right nephrectomy in fact she did not undergo right nephrectomy. She had right oophorectomy. [facility] Medical History (Updated 03/12/25 @ 15:16 by Donovan Judd MD) Encounter for insertion of mirena IUD Underweight RLQ abdominal pain Renal artery stenosis Hypertension Seizures H/O nipple discharge H/O migraine Endometriosis Dysuria Depression Chronic nausea Breast pain Appetite loss Surgical History H/O laparoscopy Social History Alcohol intake: never Substance Use Type: Marijuana Review of Systems Const Reports excessive sweating Card Reports other (Palpitation) Endo Reports excessive sweating Physical Exam Vital Signs: Last Vital Signs Pulse 80 03/12/25 14:51 BP 142/110 H 03/12/25 14:51 Pulse Ox 96 03/12/25 14:51 Oxygen Delivery Method Room Air 03/12/25 14:51 BMI result Body Mass Index 25.2 Comfortable Neck supple no JVD. Lungs entry equal no rales. Heart S1-S2 heard no gallop or rub. Abdomen soft nontender. Neuro alert awake oriented. No asterixis. Extremities no edema. Results Reviewed Nephrology Results: Hgb, (12.0-16.0) 12.9 g/dl 03/05/25 WBC, (4.8-10.8) 7.3 X10*3/uL 03/05/25 Plt Count, (160-400) 418 X10*3/uL H 03/05/25 Sodium, (135-145) 136 mmol/L 03/05/25 Potassium, (3.3-5.1) 3.3 mmol/L Δ 03/05/25 Chloride, (96-108) 100 mmol/L 03/05/25 Carbon Dioxide, (22-29) 28 mmol/L 03/05/25 BUN, (9-16) 6 mg/dL L 03/05/25 Creatinine, (0.5-1.4) 0.59 mg/dL 03/05/25 Calcium, (8.4-10.2) 9.0 mg/dL 03/05/25 Urine Protein, (Neg-Trace) Negative mg/dL Today Assessment & Plan Assessment & Plan (1) Hypertension: Code(s): I10 - Essential (primary) hypertension Category: Medical Plan 1. Hypertension Blood pressure is suboptimal. We will rule out secondary causes. Given the history of sweating and palpitations I will check catecholamines. - Increase losartan dosage from 25 mg to 50 mg daily to improve blood pressure control. - Advise dietary modifications to reduce salt intake and encourage daily physical activity, such as walking for 30 minutes. 2. Question of left Renal Artery Stenosis I am not convinced that the transvaginal probe was able to milk pickup driver renal artery stenosis. The pretest probability of renal artery stenosis in this young woman is low Nevertheless I will obtain a renal artery Doppler ultrasound to rule out renal artery stenosis. Orders: Orders Catecholamines, Frac., Plasma Today I10 - Essential (primary) hypertension Metanephrines, Plasma Today I10 - Essential (primary) hypertension UA and rflx microscopic Today I10 - Essential (primary) hypertension US renal doppler 03/12/25 I10 - Essential (primary) hypertension Medications: New losartan 50 mg PO DAILY 90 tabs 1RF Coding Level of Care Code New Pt Level 4 (21180) Diagnoses Hypertension I10
== END 2025-03-12 15:21 | disposition home or self-care (01) ==
LOC: HO.HKAS 14:18
PROVIDERS: PCP Internal Medicine; Visit Provider Internal Medicine Hypertension Specialist
DX: I10 Essential (primary) hypertension (principal)
CPT/HCPCS: 99204

== ENCOUNTER → 2025-03-12 14:17 | Outpatient (BNVA) | payer OTHER, MEDICARE, SELFPAY | LOC: CF 15:45 | PROVIDERS: PCP Internal Medicine; Visit Provider Internal Medicine Hypertension Specialist | DX: I10 Essential (primary) hypertension (principal) | CPT/HCPCS: 99202 ==

== ENCOUNTER 2025-03-13 12:55 | Outpatient (REF) | payer OTHER, SELFPAY ==
[2025-03-13 14:08] LABS: Appearance Urine Clear; Glucose Urine UA Negative (Negative); PH 7.5 (5.0-9.0); Specific Gravity - Urine 1.020 (1.005-1.025)
[2025-03-21 09:35] LABS: Metanephrine, Free 48 pg/mL (<=57); Normetanephrines, Free 63 pg/mL (<=148); Total Metanephrine, Free 111 pg/mL (<=205)
[2025-03-28 16:38] LABS: Catecholamine Frac, Total 450 pg/mL
== END 2025-03-13 12:56 | disposition home or self-care (01) ==
LOC: HO.LAB 12:55
PROVIDERS: PCP Internal Medicine; Visit Provider Internal Medicine Hypertension Specialist
DX: I10 Essential (primary) hypertension (principal)
CPT/HCPCS: 36415; 81003; 82384; 83835

== ENCOUNTER 2025-04-02 13:02 | Outpatient (AMB) | payer OTHER, SELFPAY ==
[2025-04-02 13:14] VITALS: BP 128/94; PULSE 79; O2SAT 100; BMI 24.7
--- NOTE | 2025-04-02 13:14 | HO.NEPHOV_ITS ---
Vital Signs 04/02/25 13:14 04/02/25 13:35 Height 5 ft 6 in Weight 153 lb BMI 24.7 BP 128/94 H 120/70 Blood Pressure Location Lt brachial Lt brachial Position Sitting Sitting Pulse 79 Pulse Source Pulse Oximeter Pulse Oximetry (%) 100 Oxygen Delivery Method Room Air Intake Visit Reasons: 2-3 Weeks Institutional Research Coordinator Required: No Accompanied by: Daughter Allergies amlodipine Allergy (Unknown, Verified 04/02/25 13:18) Swelling acetaminophen (From Vicodin) Allergy (Verified 04/02/25 13:18) Hives hydrocodone (From Vicodin) Allergy (Verified 04/02/25 13:18) Hives tramadol Allergy (Verified 04/02/25 13:18) Seizure Medication List - Last Reconciled 04/02/25 by Donovan Judd MD acetaminophen 500 mg PO Q4H PRN escitalopram oxalate 20 mg PO DAILY hydrochlorothiazide 25 mg PO DAILY hydroxyzine HCl 50 mg PO QID PRN losartan 50 mg PO DAILY ondansetron HCl 4 mg PO BEDTIME pantoprazole 40 mg PO DAILY sumatriptan succinate 25 mg PO DAILY PRN HPI Comments Details: The patient is a 39-year-old female presenting with uncontrolled hypertension and associated symptoms such as headaches and shortness of breath. The hypertension began approximately a year ago, with initial blood pressure readings reaching 180/100 mmHg, leading to emergency room visits due to severe headaches. Initial treatment with amlodipine was discontinued due to edema, and the patient was switched to losartan and hydrochlorothiazide, which have not fully controlled the blood pressure. The patient reports persistent symptoms of fatigue, shortness of breath, and cognitive fog, despite medication adherence. There is a family history of hypertension and cardiovascular issues, with two aunts having from strokes in their 40s. The patient has a history of endometriosis, treated with multiple surgeries, including removal of the cervix, uterus, and right ovary, leaving only the left ovary intact. The last surgery was performed two years ago, and the patient reports no blood pressure issues at that time. Recently, the patient was diagnosed with a hiatal hernia and is under the care of a washer and crusher tender. The patient has experienced significant weight gain of 30 pounds over the past year, despite no changes in dietary habits, and reports episodes of palpitations and night sweats. There is also a recent onset of urinary incontinence and increased frequency, which the patient finds concerning. She underwent renal ultrasonogram which was unremarkable however a transvaginal ultrasound report reads that she has left renal artery stenosis. The renal ultrasonogram also mentions right nephrectomy in fact she did not undergo right nephrectomy. She had right oophorectomy. 04/02/25 The patient is a 39-year-old female presenting for a follow-up on her hypertension management. She reports that her blood pressure has been high, though it is better today, with a previous reading of 142/110 mmHg. She is currently taking losartan 50 mg and hydrochlorothiazide 25 mg. Associated symptoms include occasional shortness of breath and some leg swelling. A Doppler study is scheduled for May to rule out a previously raised concern. [facility] Medical History (Updated 03/12/25 @ 15:16 by Donovan Judd MD) Encounter for insertion of mirena IUD Underweight RLQ abdominal pain Renal artery stenosis Hypertension Seizures H/O nipple discharge H/O migraine Endometriosis Dysuria Depression Chronic nausea Breast pain Appetite loss Surgical History H/O laparoscopy Social History Alcohol intake: never Substance Use Type: Marijuana Physical Exam Vital Signs: Last Vital Signs Pulse 79 04/02/25 13:14 BP 120/70 04/02/25 13:35 Pulse Ox 100 04/02/25 13:14 Oxygen Delivery Method Room Air 04/02/25 13:14 BMI result Body Mass Index 24.7 Results Reviewed Nephrology Results: Hgb, (12.0-16.0) 12.9 g/dl 03/05/25 WBC, (4.8-10.8) 7.3 X10*3/uL 03/05/25 Plt Count, (160-400) 418 X10*3/uL H 03/05/25 Sodium, (135-145) 136 mmol/L 03/05/25 Potassium, (3.3-5.1) 3.3 mmol/L Δ 03/05/25 Chloride, (96-108) 100 mmol/L 03/05/25 Carbon Dioxide, (22-29) 28 mmol/L 03/05/25 BUN, (9-16) 6 mg/dL L 03/05/25 Creatinine, (0.5-1.4) 0.59 mg/dL 03/05/25 Calcium, (8.4-10.2) 9.0 mg/dL 03/05/25 Urine Protein, (Neg-Trace) Negative mg/dL 03/13/25 Assessment & Plan Assessment & Plan (1) Hypertension: Code(s): I10 - Essential (primary) hypertension Category: Medical Plan 1. Hypertension Blood pressure is better controlled . No obvious secondary causes. - Keep losartan 50 mg daily - Advise dietary modifications to reduce salt intake and encourage daily physical activity, such as walking for 30 minutes. Obtain 24 hr ABPM 2. Question of left Renal Artery Stenosis I am not convinced that the transvaginal probe was able to picker tender helper renal artery stenosis. The pretest probability of renal artery stenosis in this young woman is low Nevertheless I will wait for renal artery Doppler ultrasound scheduled in May Orders: Orders AMB 24 HR B/P Monitor PLACEMENT Today I10 - Essential (primary) hypertension Coding Level of Care Code Est Pt Level 3 (82732) Diagnoses Hypertension I10
[2025-04-02 13:35] VITALS: BP 120/70
== END 2025-04-02 13:31 | disposition home or self-care (01) ==
LOC: HO.HKAS 13:03
PROVIDERS: PCP Internal Medicine; Visit Provider Internal Medicine Hypertension Specialist
DX: I10 Essential (primary) hypertension (principal)
CPT/HCPCS: 99213

== ENCOUNTER → 2025-04-02 13:02 | Outpatient (BNVA) | payer OTHER, SELFPAY | PROVIDERS: PCP Internal Medicine; Visit Provider Internal Medicine Hypertension Specialist | DX: I10 Essential (primary) hypertension (principal) | CPT/HCPCS: 99212 ==

== ENCOUNTER 2025-04-23 09:28 | Outpatient (AMB) | payer OTHER, SELFPAY ==
[2025-04-23 09:42] VITALS: BP 120/84
--- NOTE | 2025-04-23 09:42 | HO.NEPHOV_ITS ---
Vital Signs 04/23/25 09:42 Height 5 ft 6 in BP 120/84 Blood Pressure Location Lt brachial Position Sitting Intake Visit Reasons: 2wk f/u Client Services Associate Required: No Accompanied by: Daughter Allergies amlodipine Allergy (Unknown, Verified 04/02/25 13:18) Swelling acetaminophen (From Vicodin) Allergy (Verified 04/02/25 13:18) Hives hydrocodone (From Vicodin) Allergy (Verified 04/02/25 13:18) Hives tramadol Allergy (Verified 04/02/25 13:18) Seizure HPI Comments Details: The patient is a 39-year-old female presenting with uncontrolled hypertension and associated symptoms such as headaches and shortness of breath. The hypertension began approximately a year ago, with initial blood pressure readings reaching 180/100 mmHg, leading to emergency room visits due to severe headaches. Initial treatment with amlodipine was discontinued due to edema, and the patient was switched to losartan and hydrochlorothiazide, which have not fully controlled the blood pressure. The patient reports persistent symptoms of fatigue, shortness of breath, and cognitive fog, despite medication adherence. There is a family history of hypertension and cardiovascular issues, with two aunts having from strokes in their 40s. The patient has a history of endometriosis, treated with multiple surgeries, including removal of the cervix, uterus, and right ovary, leaving only the left ovary intact. The last surgery was performed two years ago, and the patient reports no blood pressure issues at that time. Recently, the patient was diagnosed with a hiatal hernia and is under the care of a physician primary care sports medicine. The patient has experienced significant weight gain of 30 pounds over the past year, despite no changes in dietary habits, and reports episodes of palpitations and night sweats. There is also a recent onset of urinary incontinence and increased frequency, which the patient finds concerning. She underwent renal ultrasonogram which was unremarkable however a transvaginal ultrasound report reads that she has left renal artery stenosis. The renal ultrasonogram also mentions right nephrectomy in fact she did not undergo right nephrectomy. She had right oophorectomy. 04/02/25 The patient is a 39-year-old female presenting for a follow-up on her hypertension management. She reports that her blood pressure has been high, though it is better today, with a previous reading of 142/110 mmHg. She is currently taking losartan 50 mg and hydrochlorothiazide 25 mg. Associated symptoms include occasional shortness of breath and some leg swelling. A Doppler study is scheduled for May to rule out a previously raised concern. 04/23/25 Underwent 24 hr ABPM [facility] Medical History (Updated 03/12/25 @ 15:16 by Donovan Judd MD) Encounter for insertion of mirena IUD Underweight RLQ abdominal pain Renal artery stenosis Hypertension Seizures H/O nipple discharge H/O migraine Endometriosis Dysuria Depression Chronic nausea Breast pain Appetite loss Surgical History H/O laparoscopy Social History Alcohol intake: never Substance Use Type: Marijuana Physical Exam Vital Signs: Last Vital Signs BP 120/84 04/23/25 09:42 Office Procedures 24 B/P Monitor Interpretation Details: DAy time AVerage : 121/90 Night time average 103/69 24 hr average 117/85 Systolic MAx 138 Diastolic Max: 103 Well controlled HTN with dipping. CPT: 03110 24 Hour Blood Pressure Monitor Reading Procedure code (CPT) selection complete Results Reviewed Nephrology Results: Hgb, (12.0-16.0) 12.9 g/dl 03/05/25 WBC, (4.8-10.8) 7.3 X10*3/uL 03/05/25 Plt Count, (160-400) 418 X10*3/uL H 03/05/25 Sodium, (135-145) 136 mmol/L 03/05/25 Potassium, (3.3-5.1) 3.3 mmol/L Δ 03/05/25 Chloride, (96-108) 100 mmol/L 03/05/25 Carbon Dioxide, (22-29) 28 mmol/L 03/05/25 BUN, (9-16) 6 mg/dL L 03/05/25 Creatinine, (0.5-1.4) 0.59 mg/dL 03/05/25 Calcium, (8.4-10.2) 9.0 mg/dL 03/05/25 Urine Protein, (Neg-Trace) Negative mg/dL 03/13/25 Assessment & Plan Assessment & Plan (1) Hypertension: Code(s): I10 - Essential (primary) hypertension Category: Medical Plan 1. Hypertension Blood pressure is better controlled . No obvious secondary causes. - Keep losartan 50 mg daily - Advise dietary modifications to reduce salt intake and encourage daily physical activity, such as walking for 30 minutes. 2. Question of left Renal Artery Stenosis I am not convinced that the transvaginal probe was able to picker/puller renal artery stenosis. The pretest probability of renal artery stenosis in this young woman is low Nevertheless I will wait for renal artery Doppler ultrasound scheduled in May Await imaging Orders: Orders AMB 24 HR B/P Monitor INTERPRETATION Today I10 - Essential (primary) hypertension Coding Level of Care Code Est Pt Level 4 (87561) Diagnoses Hypertension I10 CPT Codes - CPT: 93048 24 Hour Blood Pressure Monitor Reading ([id number])
== END 2025-04-23 09:56 | disposition home or self-care (01) ==
LOC: HO.HKAS 09:29
PROVIDERS: PCP Internal Medicine; Visit Provider Internal Medicine Hypertension Specialist
DX: I10 Essential (primary) hypertension (principal)
CPT/HCPCS: 93790; 99214

== ENCOUNTER → 2025-04-23 09:28 | Outpatient (BNVA) | payer OTHER, SELFPAY | PROVIDERS: PCP Internal Medicine; Visit Provider Internal Medicine Hypertension Specialist | DX: I10 Essential (primary) hypertension (principal); Z82.49 Family history of ischemic heart disease and other diseases of the circulatory system | CPT/HCPCS: 93786; 93788 ==